=== PATIENT | male | born 1995 | race Asian ===

== ENCOUNTER 2016-11-07 07:30 | Emergency (ER) | payer OTHER ==
[~2016-11-07] VITALS: Ht 170.2 cm; Wt 56.8 kg
[2016-11-07] MEDS ORDERED: POVIDONE-IODINE 10% 15 ML SOLUTION UD TP ONE (11:45)
[2016-11-07] MEDS ORDERED: LIDOCAINE HCL 1% 10 ML VIAL INJ ONE (13:15)
[2016-11-07 14:26] VITALS: BP 118/78
== END 2016-11-07 14:35 | disposition home or self-care (01) ==
LOC: EMS 07:32
DX: S61.214A Laceration without foreign body of right ring finger without damage to nail, initial encounter (principal); S61.216A Laceration without foreign body of right little finger without damage to nail, initial encounter; W22.8XXA Striking against or struck by other objects, initial encounter; Y93.89 Activity, other specified; Y92.89 Other specified places as the place of occurrence of the external cause; Y99.8 Other external cause status
CPT/HCPCS: 12002; 73130; 99284; J3490